=== PATIENT | female | born 1955 | race Caucasian/White ===

== ENCOUNTER 2017-08-05 07:35 | Outpatient (CLI) | payer OTHER ==
[~2017-08-05] VITALS: Ht 170.2 cm; Wt 127.0 kg
[~2017-08-05 07:35] MED LIST: ADVAIR HFA 230M12 GM; ADVAIRDISKUS; ASPIRIN EC325 M1 PO; ATIVAN2 MG PO; ATORVASTATIN CA40 MG; BENADRYL ALLE12.5 M1 PO; BLACK COHOSH40 M1 PO; BLACK COHOSH40 MG PO; CARAFATE1 GM PO; CELEBREX 200 M200 M1 PO; CELEBREX OR; CENTRUM SILVER1 EACH PO; CYCLOBENZAPRINE5 MG PO; CYMBALTA60 MG; CYMBALTA60 MG PO; DULCOLAX5 MG PO; EXCEDRIN CAPLE1 EACH PO; FUROSEMIDE 40 M40 M1 PO; IMDUR 30 MG TAB30 M1 PO; IMDUR 60 MG TAB60 M1 PO; KEFLEX500 M1 PO; KLOR-CON 1010 MEQ PO; LINZESS290 MCG PO; LISINOPRIL5 MG PO; MECLIZINE HCL25 M1 PO; METFORMIN HCL500 MG PO; MIRALAX17 GM PO; NEXIUM40 MG OR; NITROGLYCERIN0.4 MG SUBLING; NORCO 5-325 TA1 EACH PO; OCUVITE SOFTGE1 EAC1; OMEPRAZOLE40 MG PO; POTASSIUM20 PO; PROAIR HFA8.5 GM; PROAIR HFA8.5 GM INH; SIMVASTATIN40 MG PO; TOPROL XL50 MG PO; TRAMADOL 50 MG50 MG; TRIAMTERENE-HC1 EAC3; TRICOR145 MG; TRICOR145 MG PO; TYLENOL325 MG PO; VICODIN ES TAB1 EACH PO; VIMPAT100 MG PO; VIMPAT50 MG PO; VYTORIN 10-201 EACH OR; ZANTAC 150MG T150 MG PO; ZYRTEC10 M5
[2017-08-05 08:16] LABS: HEMATOCRIT 37.8 % (37.0-47.0); HEMOGLOBIN 12.1 gm/dL (12.0-15.0); MCH 28.5 pg (26.0-34.0); MCV 89.1 fL (80.0-100.0); MPV 8.2 fl. (7.2-11.1); RBC 4.24 mil/uL (4.20-5.00); WBC 8.4 thou/uL (4.0-11.0)
[2017-08-05 08:26] LABS: ANION GAP 9 mmol/L (7-16); BUN 22 mg/dL (7-18); CALCIUM 9.3 mg/dL (8.5-10.1); CHLORIDE 107 mmol/L (98-107); CO2 25 mmol/L (21-32); CREATININE 1.3 mg/dL (0.6-1.3); GLUCOSE 188 mg/dL (70-99); POTASSIUM 4.2 mmol/L (3.5-5.1); SODIUM 141 mmol/L (136-145)
[2017-08-05 08:28] LABS: APTT 25.9 Seconds (25.0-31.3); INR 1.1; PROTIME 10.8 Seconds (9.20-11.50)
[2017-08-05 08:30] LABS: ALBUMIN 3.5 g/dL (3.4-5.0); ALKALINE PHOSPHATASE 68 U/L (46-116); CHOLESTEROL 159 mg/dL (<200); HDL CHOLESTEROL 43 mg/dL (>40); LDL CHOLESTEROL 91 mg/dL (<100); SGOT 17 U/L (15-37); SGPT 34 U/L (30-65); TC:HDL 3.7 Ratio (Not establshd); TOTAL BILIRUBIN 0.3 mg/dL (<0.1-1.0); TOTAL PROTEIN 7.6 g/dL (6.4-8.2); TRIGLYCERIDE 127 mg/dL (<150); VLDL 25 mg/dL (<40)
[2017-08-05 08:31] LABS: SERUM ASSESSMENT Clear
[2017-08-05] MEDS ORDERED: ASPIR 8181 MG PO (08:48)
[2017-08-05] MEDS ORDERED: LISINOPRIL10 MG PO (08:48)
[2017-08-05 08:53] VITALS: BP 132/72
[2017-08-05 10:43] VITALS: BP 113/69
[2017-08-05 10:47] VITALS: BP 97/57
[2017-08-05 11:06] VITALS: BP 101/58
[2017-08-05 12:38] VITALS: BP 90/43
[2017-08-05 14:22] VITALS: BP 108/50
--- NOTE | 2017-08-08 11:06 | CARD ---
[address] [address] CARDIAC CATH REPORT Name: ROJELIO MAYES Room: KEVIN Antonio#: [id number] Admission: 08/05/17 Attend Phys: Sage Verde MD, Discharge: 08/05/17 Date of : 53 Report #: [id number] THIS REPORT FOR: //name// APPROVED REPORT Patient Details Patient Status: Out-Patient Room #: The patient is a 62 year-old female Event Personnel Sage Verde Calender Operator, Audrey Zhu RN RN, Jesús Perla (R) Barbara Paagn James Monitor Procedures Performed Left heart catheterization left ventriculography and selective right and left coronary arteriography Indication Chest pain Risk Factors Hypercholesterolemia, Coronary Artery DiseaseHypertension Previous Procedures/Diagnoses Previous PCI, Previous [place] Procedure Narrative The patient was brought electively to the Cardiac Catheterization Laboratory and was prepped and draped in a sterile manner. The right femoral was infiltrated with 1% Lidocaine subcutaneous anesthesia. A [place] 6 FR sheath was inserted into the right femoral artery. Coronary angiography was performed using coronary diagnostic catheters. The right coronary system was accessed and visualized with a Diagnostic - JR4 catheter. The left coronary system was accessed and visualized with a Diagnostic - JL4 catheter. The left ventricle was accessed and visualized with a Diagnostic - PIG catheter. Left ventricular/Aortic Valve gradient assessed via catheter pullback. Pre-demployment femoral angiogram was performed . Closure device was deployed with a Fr MynxGrip 6/7F. The patient tolerated the procedure well and there were no complications associated with the procedure. Intraoperative Conscious Sedation Sedation start time: 944 Case end Time: 1016 Fentanyl 50 mcg Vers[place] 2.5 [place] [address] CARDIAC CATH REPORT Name: ROJELIO MAYES Room: [facility] Paco#: [id number] Admission: 08/05/17 Attend Phys: Sage Verde MD, Discharge: 08/05/17 Date of : 53 Report #: [id number] Fluoro Time: 3.7 minutes Dose: DAP 57195 cGycm2 1077 mGy Contrast Type and Amount: Visipaque 180 ml Diagnostic Cath Left Main 40 Percent calcified distal narrowing LAD 30% mid LAD stenosis with a widely patent first diagonal stent Circumflex 40% mid vessel narrowing, this being a nondominant vessel Right Coronary Dominant vessel with 40% mid vessel narrowing Left Ventriculography The left ventricle is normal in size with normal contractility. The left ventricular ejection fraction is estimated to be 55%. There is no mitral insufficiency. Hemodynamics The aortic pressure is 131/50 mmHg with a mean of 79 mmHg. The left ventricular pressure is 115/7 mmHg with a mean of mmHg. The left ventricular end diastolic pressure is 15 mmHg. There was no gradient across the aortic valve upon pullback. Conclusion #1 atherosclerotic coronary disease characterized by the following: A 40% calcified distal left main coronary artery narrowing, B 30% mid LAD narrowing with widely patent first diagonal stent, C 40% narrowing in the midportion of the nondominant circumflext, and B 40% narrowing in the midportion of the dominant right coronary artery #2 normal left-sided hemodynamics study, #3 left ventricular ejection fraction of 55%. [place] [address] CARDIAC CATH REPORT Name: ROJELIO MAYES Room: [facility]#: [id number] Admission: 08/05/17 Attend Phys: Sage Verde MD, Discharge: 08/05/17 Date of : 53 Report #: [id number] Cardiac Risk Reduction Program Aggressive Medical Therapy <ELECTRONICALLY SIGNED> By: Sage Verde MD, FACC 08/08/17 1106 1106 [id number] Verde MD, FACC /INF
== END 2017-08-05 15:14 | disposition home or self-care (01) ==
LOC: M.CL 07:35 → M.TBA-CV 10:23 → M.CL 15:14
PROVIDERS: Internal Medicine
DX: I25.10 Atherosclerotic heart disease of native coronary artery without angina pectoris (principal); E78.00 Pure hypercholesterolemia, unspecified; I10 Essential (primary) hypertension; Z98.890 Other specified postprocedural states; Z87.891 Personal history of nicotine dependence